=== PATIENT | male | born 1955 | race Caucasian/White ===

== ENCOUNTER 2019-12-16 07:11 | Day surgery (SDC) | payer OTHER, SELFPAY ==
[2019-12-10 16:08] VITALS: BMI 25.1
--- NOTE | 2019-12-15 11:42 | P.CONAN_ITS ---
Documented by User: Ivy Landaverde 12/15/19 11:42 HPI - Anesthesia Eval Consult details Narrative: 64yo M for Colonoscopy PMFSH Past Medical History Medical History (Updated 12/16/19 @ 08:24 by Kaelyn Le) Anxiety disorder Diabetes Eczema Elevated cholesterol History of right foot drop HTN (hypertension) Hx of right bundle branch block Lymphocytosis Seizure disorder Surgical History Surgical History Hx of colonoscopy Social History Social History Smoking Status: Never smoker Use of substances other than those prescribed or required for medical reasons: No Have you been hit, kicked, punched, or otherwise hurt by someone within the past year? If so, by whom?: No Advance Directives: No Advance Directives Information Provided: No Advance Directives on File: No Recently lost weight without trying: No Meds Allergies Allergy/AdvReac Type Severity Reaction Status Date / Time Shellfish Allergy Severe Anaphylaxis Uncoded 12/10/19 16:07 Home Medications Medication Instructions Recorded Confirmed Type dapagliflozin [Farxiga] 1 tab PO DAILY 12/10/19 12/10/19 History glyburide 10 tab PO BID 12/10/19 12/10/19 History hydrochlorothiazide 1 cap PO DAILY 12/10/19 12/10/19 History metformin 1 tab PO BID 12/10/19 12/10/19 History phenytoin sodium extended 1 cap PO 4-5XD 12/10/19 12/10/19 History ramipril cap PO 12/10/19 History rosuvastatin 1 tab PO DAILY 12/10/19 12/10/19 History sertraline 1 tab PO DAILY 12/10/19 12/10/19 History sitagliptin [Januvia] 1 tab PO DAILY 12/10/19 12/10/19 History Exam Exam Date and Time: December 15, 2019 1142 Height,Weight and Vital Signs: Height 5 ft 11 in Weight 81.647 kg Assessment and Plan Assessment Anesthesia Assessment: Chart Reviewed Documented by User: Kaelyn Le 12/16/19 08:26 [facility] Past Medical History Medical History (Updated 12/16/19 @ 08:24 by Kaelyn Le) Anxiety disorder Diabetes Eczema Elevated cholesterol History of right foot drop HTN (hypertension) Hx of right bundle branch block Lymphocytosis Seizure disorder Family History Family history of problems with anesthesia: No Surgical History Surgical History Hx of colonoscopy History of Problems with Anesthesia: No Social History Social History Smoking Status: Never smoker Use of substances other than those prescribed or required for medical reasons: No Have you been hit, kicked, punched, or otherwise hurt by someone within the past year? If so, by whom?: No Advance Directives: No Advance Directives Information Provided: No Advance Directives on File: No Recently lost weight without trying: No Meds Allergies Allergy/AdvReac Type Severity Reaction Status Date / Time Shellfish Allergy Severe Anaphylaxis Uncoded 12/10/19 16:07 Home Medications Medication Instructions Recorded Confirmed Type dapagliflozin [Farxiga] 1 tab PO DAILY 12/10/19 12/10/19 History glyburide 10 tab PO BID 12/10/19 12/10/19 History hydrochlorothiazide 1 cap PO DAILY 12/10/19 12/10/19 History metformin 1 tab PO BID 12/10/19 12/10/19 History phenytoin sodium extended 1 cap PO 4-5XD 12/10/19 12/10/19 History ramipril cap PO 12/10/19 History rosuvastatin 1 tab PO DAILY 12/10/19 12/10/19 History sertraline 1 tab PO DAILY 12/10/19 12/10/19 History sitagliptin [Januvia] 1 tab PO DAILY 12/10/19 12/10/19 History Exam Height,Weight and Vital Signs: Vital Signs Temp Pulse Resp Pulse Ox 12/16/19 08:08 98.0 F 80 16 97 Lab Results 12/16/19 Range/Units 08:19 POC Glucose 104 (60-115) mg/dL Airway Mallampati Class: II TM Dist: >3cm Neck ROM: Full Heart: RRR Lungs: CTAB Assessment and Plan Assessment Anesthesia Assessment: Anesthesia Plan Discussed and Chart Reviewed Final Anesthetic Review NPO: Yes ASA Class: III Final Preanesthetic Review: No Changes in Pt Med Stat, Meds/Allgs Chart Reviewed, Consent Obtained/Reviewed and Anes Risks/Benef Reviewed Patient Risk: Intermediate Procedure Risk: Low Anesthetic Plan Anesthetic Plan: MAC: Disposition: Standard PACU
[2019-12-16 08:08] VITALS: BP 156/86; PULSE 80; RESP 16; TEMP 36.7; O2SAT 97
[2019-12-16] MEDS: Lactated Ringers 1,000 ML 100 ML IVCONT (08:10)
[2019-12-16 08:11] VITALS: BMI 25.1
[2019-12-16 08:22] LABS: Glucose, Whole Blood 104 mg/dL (60-115)
--- NOTE | 2019-12-16 08:31 | P.CONAN_ITS ---
[facility] Past Medical History Medical History (Updated 12/16/19 @ 08:24 by Kaelyn Le) Anxiety disorder Diabetes Eczema Elevated cholesterol History of right foot drop HTN (hypertension) Hx of right bundle branch block Lymphocytosis Seizure disorder Surgical History Surgical History Hx of colonoscopy Social History Social History Smoking Status: Never smoker Use of substances other than those prescribed or required for medical reasons: No Have you been hit, kicked, punched, or otherwise hurt by someone within the past year? If so, by whom?: No Advance Directives: No Advance Directives Information Provided: No Advance Directives on File: No Recently lost weight without trying: No Meds Allergies Allergy/AdvReac Type Severity Reaction Status Date / Time Shellfish Allergy Severe Anaphylaxis Uncoded 12/10/19 16:07 Home Medications Medication Instructions Recorded Confirmed Type dapagliflozin [Farxiga] 1 tab PO DAILY 12/10/19 12/10/19 History glyburide 10 tab PO BID 12/10/19 12/10/19 History hydrochlorothiazide 1 cap PO DAILY 12/10/19 12/10/19 History metformin 1 tab PO BID 12/10/19 12/10/19 History phenytoin sodium extended 1 cap PO 4-5XD 12/10/19 12/16/19 History ramipril cap PO 12/10/19 History rosuvastatin 1 tab PO DAILY 12/10/19 12/10/19 History sertraline 1 tab PO DAILY 12/10/19 12/10/19 History sitagliptin [Januvia] 1 tab PO DAILY 12/10/19 12/10/19 History Exam Exam Date and Time: December 16, 201931 Height,Weight and Vital Signs: Height 5 ft 11 in Weight 81.647 kg Last Vital Signs Temp 98.0 F 12/16/19 08:08 Pulse 80 12/16/19 08:08 Resp 16 12/16/19 08:08 BP 156/86 H 12/16/19 08:08 Pulse Ox 97 12/16/19 08:08 Pertinent Lab Results Pertinent Lab Results: Laboratory Tests 12/16/19 08:19 POC Glucose 104 Assessment and Plan Assessment Anesthesia Assessment: Anesthesia Plan Discussed and Chart Reviewed Final Anesthetic Review NPO: Yes ASA Class: III Final Preanesthetic Review: No Changes in Pt Med Stat, Meds/Allgs Chart Reviewed, Consent Obtained/Reviewed and Anes Risks/Benef Reviewed Patient Risk: Intermediate Anesthetic Plan Anesthetic Plan: MAC: Disposition: Standard PACU
--- NOTE | 2019-12-16 08:31 | MHC.SHP ---
Pre-Procedural Eval Section B Chief Complaint: screening Details of Present Illness: COLONOSCOPY Relevant Family History (Specify if Yes): No Relevant Social History: None Present Medications: see Short Stay Collaborative assessment Medical History: Significant History (SEIZURE DISORDER, HYPERTENSION, DIABETES, RBBB) History of Previous Operations: Relevant previous surgery/procedure and date(s) (2009-INCOMPLETE COLO) Allergies: Allergies Allergy/AdvReac Type Severity Reaction Status Date / Time Shellfish Allergy Severe Anaphylaxis Uncoded 12/10/19 16:07 Review of Systems Sugical H&P ROS: Negative: Constitution, Cardiovascular, Respiratory and Gastrointestinal Review of Systems Comment: NO INTERIM PROBLEMS. Exam Surgical H&P Exam: Normal: HEENT, Normal: Heart, Normal: Lungs, Normal: Extremities, Normal: Abdomen and Normal: Skin Plan Diagnosis/Plan: Unchanged Patient has been examined and remains a candidate for the planned procedure--YES
--- NOTE | 2019-12-16 08:37 | PM.PROC ---
Brief Operative Note Date of procedure: 12/16/19 Pre-op diagnosis: Incomplete colo--2009 Post-op diagnosis: other (Multiple polyps with complex polypectomies of 2) Procedure: Colonoscopy Anesthesia: MAC (BOB Olivas) Surgeon: Tamiko Vincent Estimated blood loss (mL): 10 Pathology: other (Hepatic Flexure, ascending colo ; prox asc colon, 45 cm) Condition: stable Disposition: PACU
[2019-12-16 10:10] VITALS: BP 138/71; PULSE 70; RESP 16; TEMP 36.4; O2SAT 97
[2019-12-16 10:25] VITALS: BP 158/84; PULSE 16; RESP 16; TEMP 36.4; O2SAT 98
--- NOTE | 2019-12-16 11:08 | HO.POSTANES ---
Post Anesthesia Evaluation Post Anesthesia Evaluation Vital Signs: Vital Signs Temp Pulse Resp BP Pulse Ox 12/16/19 10:25 97.5 F 16 L 16 158/84 H 98 12/16/19 10:10 97.5 F 70 16 138/71 97 12/16/19 08:08 98.0 F 80 16 156/86 H 97 Anesthesia: Monitored Mental Status: Awake Pain Control: Satisfactory Nausea/Vomiting: None Hydration: Adequate Anesthesia-Related Issues: No Anes. Related Issues
--- NOTE | 2019-12-19 14:27 | OP_ITS ---
SURGEON: Tamiko Vincent MD PROCEDURE PERFORMED: Colonoscopy with hot snare polypectomy x2, excisional polypectomy x2, 4 total polypectomies, for the procedure submucosal epinephrine injection 2.5 mL, resolution clipping x2 at the level of the hepatic flexure, total resolution clips 3. This was a complex procedure. ESTIMATED BLOOD LOSS: Minimal. COMPLICATIONS: No complications. ANESTHESIA: Monitored. The patient was given an additional dose of 1 mg of glucagon to control spasm during the time span of the polypectomies. ANESTHESIOLOGIST: Stanford Olivas CRNA. ASSISTANTS: No baking assistant. SPECIMENS: Specimens removed; hepatic flexure, resolution clip placed in this area. In this area, had 1.5 mL submucosally of the epinephrine. Ascending colon polyp, proximal ascending colon 45 cm polyp. PREOPERATIVE DIAGNOSES: Colon cancer screening, complete colonoscopy in 2009. The patient has significant medical problems: Seizure disorder, Noninsulin dependent diabetes, Hypertension, H. POSTOPERATIVE DIAGNOSES: Diverticulosis, multiple polyps, villous lesion at the anorectal verge. Referral to Dr. Velasquez for lesion @ the anorectal verge. DIRECTOR MOTION PICTURE: Dr. Vincent. START TIME: 8:41 a.m. END TIME: 10:01 a.m. CONDITION: Postprocedure, stable. FINDINGS: Digital rectal exam revealed enlarged slightly firm prostate consistent with BPH. Video colonoscope was introduced without difficulty. It was navigated into rectosigmoid and sigmoid area. Slow progress through sigmoid, descending colon. Scope was ultimately moved through the transverse colon, ascending colon down into the cecum. Appendiceal orifice was seen. Ileocecal valve was well seen. No mucosal abnormalities were appreciated on the way in. Prep was good. Few areas requiring additional flushing and suctioning. In addition to the polyps on this exam, there was some diverticula noted, primarily on the left side. polyps were removed as described in procedure and specimens. Slow removal on withdrawing the scope. There was an approximately 1 cm hypervascular villous type polyp right at the anorectal verge. This was left in place to be removed under surgical management at a later date. PLAN AND CURRENT RECOMMENDATIONS: Repeat asymptomatic screening in this patient is generally 5 years. Review of histology available at the time of the dictation of this note revealed all polyps to be tubular adenomas. None of them had high-grade dysplasia. 5-year followup as appropriate. Followup or televisit to discuss area at the anorectal verge that will need to be addressed due to its hypervascularity and location in the hemorrhoidal bed. GRAFT OR IMPLANTS: Resolution clipping x2 Tamiko Vincent MD MEN/MODL / [id number] MTDD
== END 2019-12-16 11:40 | disposition home or self-care (01) ==
PROVIDERS: PCP Internal Medicine; Visit Provider Internal Medicine Gastroenterology
PROC: 0DJD8ZZ Inspection of Lower Intestinal Tract, Via Natural or Artificial Opening Endoscopic (ICD-10-PCS; CPT 45378; principal; 2019-12-16 08:20)
DX: Z12.11 Encounter for screening for malignant neoplasm of colon (principal); D12.2 Benign neoplasm of ascending colon; D12.3 Benign neoplasm of transverse colon; D12.5 Benign neoplasm of sigmoid colon; K57.30 Diverticulosis of large intestine without perforation or abscess without bleeding; E11.9 Type 2 diabetes mellitus without complications; I10 Essential (primary) hypertension; G40.909 Epilepsy, unspecified, not intractable, without status epilepticus; Z79.84 Long term (current) use of oral hypoglycemic drugs; Z79.899 Other long term (current) drug therapy
CPT/HCPCS: 45385; 45380; 45381; 82947; 88305; J0171; J1610

== ENCOUNTER → 2020-01-06 10:28 | Outpatient (BNVA) | payer OTHER, SELFPAY | PROVIDERS: PCP Internal Medicine; Referring Provider Internal Medicine; Visit Provider Nurse Practitioner | DX: Z76.89 Persons encountering health services in other specified circumstances (principal) ==

== ENCOUNTER 2020-02-28 07:01 | Outpatient (REF) | payer OTHER, SELFPAY ==
[2020-02-28 07:49] LABS: Estimated Average Glucose 214 mg/dL; Hemoglobin A1c % 9.1 %
[2020-02-28 07:53] LABS: Glucose Fasting 203 mg/dL (60-99)
== END 2020-02-28 07:02 | disposition home or self-care (01) ==
LOC: HO.LAB 07:01
PROVIDERS: PCP Internal Medicine; Visit Provider Internal Medicine
DX: E11.9 Type 2 diabetes mellitus without complications (principal)
CPT/HCPCS: 36415; 82947; 83036

== ENCOUNTER 2020-06-15 11:09 | Outpatient (REF) | payer OTHER, SELFPAY ==
[2020-06-15 11:40] LABS: MANUAL DIFF FLAG NO
[2020-06-15 12:14] LABS: Basophils Percent Auto 0.5 % (0-2); Eosinophils Absolute Auto 0.2 X10*3/uL (0.0-0.4); Eosinophils Percent Auto 4.3 % (0-4); Hematocrit 38.6 % (42-52); Hemoglobin 12.8 g/dl (14.0-18.0); Lymphocytes Absolute Auto 1.5 X10*3/uL (1.2-4.9); Lymphocytes Percent Auto 35.4 % (20-40); Mean Corpuscular HGB Conc 33.2 g/dl (31.0-36.0); Mean Corpuscular Hemoglobin 29.7 pg (27.0-33.0); Mean Corpuscular Volume 89.6 fL (80-98); Mean Platelet Volume 9.3 fL (9.4-12.4); Monocytes Absolute Auto 0.4 X10*3/uL (0.1-1.2); Monocytes Percent Auto 10.5 % (2-11); Neutrophils Absolute Auto 2.1 X10*3/uL (2.0-8.3); Neutrophils Percent Auto 49.3 % (45-73); Platelet Count 251 X10*3/uL (160-400); Red Blood Count 4.31 X10*6/uL (4.60-5.80); Red Cell Distribution Width 12.4 % (11.0-16.0); White Blood Count 4.2 X10*3/uL (4.8-10.8)
[2020-06-15 12:24] LABS: Estimated Average Glucose 209 mg/dL; Hemoglobin A1c % 8.9 %
[2020-06-15 12:28] LABS: Glucose Urine UA >=1000 MG/DL (NEG); Leukocyte Esterase Urine NEG (NEG); Nitrite Urine NEG (NEG); PH 6.5 (5.0-8.0); Urine Blood NEG (NEG); Urine Ketones NEG (NEG); Urine Protein TRACE MG/DL (NEG-TRACE)
[2020-06-15 12:30] LABS: Appearance Urine CLEAR; Color Urine YELLOW
[2020-06-15 12:49] LABS: Alanine Aminotransferase 32 U/L (0-40); Albumin Level 4.3 g/dL (3.5-5.0); Alkaline Phosphatase 74 U/L (39-117); Anion Gap 14 (12-20); Aspartate Amino Transferase 29 U/L (5-37); Bilirubin Total 0.4 mg/dL (0.0-1.0); Blood Urea Nitrogen 18 mg/dL (9-16); Calcium 8.9 mg/dL (8.4-10.2); Carbon Dioxide 27 mmol/L (22-29); Chloride 102 mmol/L (96-108); Cholesterol 143 mg/dL; Estimated Glomerular Filt Rate > 60; Glucose Fasting 193 mg/dL (60-99); HDL Cholesterol 64 mg/dL; LDL Cholesterol Calculated 69 mg/dl; Potassium 4.2 mmol/L (3.3-5.1); Sodium 139 mmol/L (135-145); Total Protein 6.8 g/dL (6.5-8.0); Triglycerides 50 mg/dL
[2020-06-15 12:54] LABS: RBC Urine 0-2 /HPF (0); Squamous Epithelial Cell Urine TRACE /LPF; WBC Urine 0 /HPF (0-4)
[2020-06-15 12:59] LABS: Reflex LDLD? No
[2020-06-15 13:02] LABS: Microalbum/Creatinine Ratio Ur 149.5 ug/mg cr
[2020-06-15 13:11] LABS: PSA,Total (Free>4and<10) 1.41 ng/mL (0.00-4.00)
== END 2020-06-15 11:10 | disposition home or self-care (01) ==
LOC: HO.LNP 11:09
PROVIDERS: PCP Internal Medicine; Visit Provider Internal Medicine
DX: Z00.00 Encounter for general adult medical examination without abnormal findings (principal); E11.9 Type 2 diabetes mellitus without complications; I10 Essential (primary) hypertension; E78.00 Pure hypercholesterolemia, unspecified; R79.9 Abnormal finding of blood chemistry, unspecified
CPT/HCPCS: 80053; 80061; 81001; 81003; 82043; 83036; 84153; 85025

== ENCOUNTER 2022-07-10 15:53 | Outpatient (REF) | payer OTHER, SELFPAY ==
[2022-07-10 16:01] LABS: Appearance Urine Clear; Color Urine Yellow; Glucose Urine UA >=1000 mg/dL (Negative); Leukocyte Esterase Urine Negative (Negative); Nitrite Urine Negative (Negative); PH 5.5 (5.0-9.0); Specific Gravity - Urine >= 1.030 (1.005-1.025); UMIC TRIGGER UA YES; Urine Blood Negative (Negative); Urine Ketones 15 mg/dL (Negative); Urine Protein 30 (1+) mg/dL (Neg-Trace)
[2022-07-10 16:04] LABS: Bacteria Urine None Seen (None Seen); Hyaline Casts Urine 0-2 /LPF (0-2); RBC Urine 0-2 /HPF (0-2); Squamous Epithelial Cell Urine 0-2 /HPF (0-2); WBC Urine 0-5 /HPF (0-5)
== END 2022-07-10 15:54 | disposition home or self-care (01) ==
LOC: HO.LNP 15:53
PROVIDERS: Visit Provider Internal Medicine
DX: R35.89 Other polyuria (principal)
CPT/HCPCS: 81001; 87086

== ENCOUNTER 2022-08-17 11:15 | Outpatient (REF) | payer OTHER, SELFPAY ==
[2022-08-17 11:24] LABS: MANUAL DIFF FLAG NO
[2022-08-17 12:35] LABS: Basophils Percent Auto 0.5 % (0-2); Eosinophils Absolute Auto 0.3 X10*3/uL (0.0-0.4); Eosinophils Percent Auto 5.9 % (0-4); Hematocrit 40.6 % (42.0-52.0); Hemoglobin 13.4 g/dl (14.0-18.0); Lymphocytes Absolute Auto 1.8 X10*3/uL (1.2-4.9); Lymphocytes Percent Auto 43.5 % (20-40); Mean Corpuscular Volume 90.8 fL (80.0-98.0); Mean Platelet Volume 9.9 fL (9.4-12.4); Monocytes Absolute Auto 0.4 X10*3/uL (0.1-1.2); Monocytes Percent Auto 10.5 % (2-11); Neutrophils Absolute Auto 1.7 x10*3/uL (2.0-8.3); Neutrophils Percent Auto 39.6 % (45-73); Platelet Count 248 X10*3/uL (160-400); Red Blood Count 4.47 X10*6/uL (4.60-5.80); Red Cell Distribution Width 13.8 % (11.0-16.0); White Blood Count 4.2 X10*3/uL (4.8-10.8)
[2022-08-17 12:42] LABS: Phenytoin Dilantin 10.1 ug/mL (10.0-20.0)
[2022-08-17 12:43] LABS: Alanine Aminotransferase 27 U/L (0-40); Albumin Level 4.5 g/dL (3.5-5.0); Alkaline Phosphatase 70 U/L (39-117); Anion Gap 15 (12-20); Aspartate Amino Transferase 17 U/L (5-37); Bilirubin Total 0.5 mg/dL (0.0-1.0); Blood Urea Nitrogen 23 mg/dL (9-16); Calcium 9.5 mg/dL (8.4-10.2); Carbon Dioxide 25 mmol/L (22-29); Chloride 105 mmol/L (96-108); Cholesterol 175 mg/dL; Estimated Glomerular Filt Rate > 60; Glucose Fasting 179 mg/dL (60-99); HDL Cholesterol 56 mg/dL; LDL Cholesterol Calculated 99 mg/dl; Potassium 3.8 mmol/L (3.3-5.1); Sodium 141 mmol/L (135-145); Total Protein 7.2 g/dL (6.5-8.0); Triglycerides 101 mg/dL
[2022-08-17 12:48] LABS: Estimated Average Glucose 197 mg/dL; Hemoglobin A1c % 8.5 %
[2022-08-17 13:02] LABS: PSA,Total (Free>4and<10) 1.46 ng/mL (0.00-4.00)
== END 2022-08-17 11:16 | disposition home or self-care (01) ==
LOC: HO.LNP 11:15
PROVIDERS: Visit Provider Internal Medicine
DX: Z12.5 Encounter for screening for malignant neoplasm of prostate (principal); G40.909 Epilepsy, unspecified, not intractable, without status epilepticus; E11.9 Type 2 diabetes mellitus without complications; E78.00 Pure hypercholesterolemia, unspecified; I10 Essential (primary) hypertension; R79.9 Abnormal finding of blood chemistry, unspecified; Z79.899 Other long term (current) drug therapy
CPT/HCPCS: 80053; 80061; 80185; 83036; 84153; 85025

== ENCOUNTER 2022-08-24 16:55 | Outpatient (REF) | payer OTHER, SELFPAY | END 2022-08-24 16:56 | disposition home or self-care (01) | LOC: HO.LNP 16:55 | PROVIDERS: PCP Internal Medicine; Visit Provider Internal Medicine | DX: E11.9 Type 2 diabetes mellitus without complications (principal); I10 Essential (primary) hypertension | CPT/HCPCS: 81001; 82043 ==

== ENCOUNTER 2022-10-19 12:37 | Outpatient (REF) | payer MEDICARE, SELFPAY ==
[2022-10-19 12:43] LABS: MANUAL DIFF FLAG NO
[2022-10-19 12:47] LABS: Basophils Percent Auto 0.6 % (0-2); Eosinophils Absolute Auto 0.2 X10*3/uL (0.0-0.4); Eosinophils Percent Auto 4.1 % (0-4); Hematocrit 42.2 % (42.0-52.0); Hemoglobin 14.1 g/dl (14.0-18.0); Lymphocytes Absolute Auto 2.1 X10*3/uL (1.2-4.9); Lymphocytes Percent Auto 45.1 % (20-40); Mean Corpuscular HGB Conc 33.4 g/dl (31.0-36.0); Mean Corpuscular Hemoglobin 29.3 pg (27.0-33.0); Mean Corpuscular Volume 87.6 fL (80.0-98.0); Mean Platelet Volume 9.9 fL (9.4-12.4); Monocytes Absolute Auto 0.6 X10*3/uL (0.1-1.2); Monocytes Percent Auto 13.7 % (2-11); Neutrophils Absolute Auto 1.7 x10*3/uL (2.0-8.3); Neutrophils Percent Auto 36.5 % (45-73); Platelet Count 222 X10*3/uL (160-400); Red Blood Count 4.82 X10*6/uL (4.60-5.80); Red Cell Distribution Width 12.7 % (11.0-16.0); White Blood Count 4.7 X10*3/uL (4.8-10.8)
== END 2022-10-19 12:38 | disposition home or self-care (01) ==
LOC: HO.LNP 12:37
PROVIDERS: Visit Provider Internal Medicine
DX: D72.820 Lymphocytosis (symptomatic) (principal)
CPT/HCPCS: 85025

== ENCOUNTER 2023-10-15 10:40 | Outpatient (REF) | payer MEDICARE, SELFPAY ==
[2023-10-15 11:34] LABS: Blood Urea Nitrogen 19 mg/dL (9-16); Estimated Glomerular Filt Rate 59
== END 2023-10-15 10:41 | disposition home or self-care (01) ==
LOC: HO.LNP 10:40
PROVIDERS: Visit Provider Internal Medicine
DX: R79.9 Abnormal finding of blood chemistry, unspecified (principal)
CPT/HCPCS: 82565; 84520

== ENCOUNTER 2024-05-12 13:13 | Outpatient (REF) | payer MEDICARE, SELFPAY ==
[2024-05-12 13:16] LABS: MANUAL DIFF FLAG NO
[2024-05-12 13:24] LABS: Basophils Percent Auto 0.5 % (0-2); Eosinophils Absolute Auto 0.1 X10*3/uL (0.0-0.4); Eosinophils Percent Auto 1.6 % (0-4); Hematocrit 35.4 % (42.0-52.0); Hemoglobin 12.1 g/dl (14.0-18.0); Imm Gran Abs Auto 0.01 X10*3/uL (0.00-0.03); Imm Gran Pct Auto 0.2 % (0.0-0.4); Lymphocytes Absolute Auto 1.2 X10*3/uL (1.2-4.9); Lymphocytes Percent Auto 27.7 % (20-40); Mean Corpuscular HGB Conc 34.2 g/dl (31.0-36.0); Mean Corpuscular Volume 87.6 fL (80.0-98.0); Mean Platelet Volume 9.1 fL (9.4-12.4); Monocytes Absolute Auto 0.4 X10*3/uL (0.1-1.2); Monocytes Percent Auto 9.6 % (2-11); Neutrophils Absolute Auto 2.6 x10*3/uL (2.0-8.3); Neutrophils Percent Auto 60.4 % (45-73); Platelet Count 295 X10*3/uL (160-400); Red Blood Count 4.04 X10*6/uL (4.60-5.80); Red Cell Distribution Width 12.9 % (11.0-16.0); White Blood Count 4.3 X10*3/uL (4.8-10.8)
[2024-05-12 13:35] LABS: Alanine Aminotransferase 42 U/L (0-40); Albumin Level 4.1 g/dL (3.5-5.0); Alkaline Phosphatase 131 U/L (39-117); Anion Gap 9 (12-20); Aspartate Amino Transferase 26 U/L (5-37); Bilirubin Total 0.2 mg/dL (0.0-1.0); Blood Urea Nitrogen 29 mg/dL (9-16); Calcium 8.7 mg/dL (8.4-10.2); Carbon Dioxide 26 mmol/L (22-29); Chloride 109 mmol/L (96-108); Estimated Glomerular Filt Rate > 60; Glucose Random 228 mg/dL (60-115); Potassium 4.2 mmol/L (3.3-5.1); Sodium 140 mmol/L (135-145)
[2024-05-12 14:06] LABS: Phenytoin Dilantin 12.4 ug/mL (10.0-20.0)
== END 2024-05-12 13:14 | disposition home or self-care (01) ==
LOC: HO.LNP 13:13
PROVIDERS: Visit Provider Internal Medicine
DX: R26.9 Unspecified abnormalities of gait and mobility (principal); F68.8 Other specified disorders of adult personality and behavior
CPT/HCPCS: 80053; 80185; 85025

== ENCOUNTER 2025-01-27 09:52 | Outpatient (AMB) | payer MEDICARE, OTHER, SELFPAY ==
--- NOTE | 2025-01-27 10:27 | A.OFFVIS_ITS ---
Intake Visit Reasons: follow up Allergies Shellfish Allergy (Severe, Uncoded 12/10/19 16:07) Anaphylaxis Medication List - Last Reconciled 01/27/25 by Franco Taylor MD dapagliflozin propanediol (Farxiga) 1 tab PO DAILY glyburide 5 mg PO BID hydrochlorothiazide 1 cap PO DAILY insulin glargine (Lantus Solostar U-100 Insulin) 20 units subcut DAILY metformin 1,000 mg PO DAILY phenytoin sodium extended 100 mg orally; 1 tab in am and 2 tabs at HS rosuvastatin 1 tab PO DAILY sitagliptin phosphate (Januvia) 1 tab PO DAILY HPI Comments Details: He is doing much better with his balance and now gets around well with a wheeled walker. Only one fall by tripping. No injuries. Had PT. Family have noticed in the last 3 years that he's had some short-term memory problems.? Over the last 2 years he's had slowly progressive gait and balance problems with at least 5 falls, the last one was about 3 weeks ago.? Currently he is in a wheelchair and can walk with a walker with one assist.? He has a long history of epilepsy has been seizure free for more than 24 years and was taking Dilantin 500 mg a day which was reduced to 400mg a day in June. No levels are available.? He also has a 40 year history of diabetes and has been poorly compliant with his medications.? He has no bladder control problems.? A recent MRI of the brain and was reviewed and shows a moderate hydrocephalus as well has scored diffuse shelton ical and cerebellar atrophy. [facility] Medical History (Updated 01/27/25 @ 10:31 by Franco Taylor MD) HLD (hyperlipidemia) Epilepsy Cerebellar ataxia Hydrocephalus Lymphocytosis Anxiety disorder History of right foot drop Eczema Seizure disorder Diabetes Hx of right bundle branch block Elevated cholesterol HTN (hypertension) Surgical History (Updated 01/06/20 @ 10:33 by CARMEL Rosales) Hx of colonoscopy Family History (Updated 01/06/20 @ 10:31 by CARMEL Rosales) Father Cancer of kidney Mother Diabetes Emphysema lung Social History (Updated 08/25/24 @ 16:31 by Zoie Call MA) Alcohol intake: never Patient Tobacco Use Status: Never used Tobacco Review of Systems Const Details: ?Sleep:? Difficulty getting to sleepdenies.? Difficulty maintaining sleepdenies?.? Urge to move legsdenies.? Teeth grindingdenies.? Shouting or Kicking during sleep denies.? Abnormal behavior during sleepdenies.? Excessive sleepdenies.? Snoring denies.? Daytime sleepinessdenies. ???General/Constitutional:? Change in appetitedenies.? Chillsdenies.? Fatiguedenies.? Feverdenies.? Weight gaindenies.? Weight lossdenies. ???Ophthalmologic:? Blurred visiondenies.? Diminished visual acuitydenies. ???ENT:? Stuffinessdenies.? Decreased hearingdenies.? Dry mouthdenies.? Ear paindenies.? Nosebleeddenies.? Ringing in the earsdenies.? Sinus paindenies.? Sore throat denies.? Swollen glandsdenies. ???Endocrine:? Cold intolerancedenies.? Excessive thirstdenies.? Frequent urinationdenies.? Heat intolerancedenies. ???Respiratory:? Shortness of breathdenies.? Chest paindenies.? Coughdenies. ???Breast:? Breast lumpdenies.? Nipple dischargedenies. ???Cardiovascular:? Chest pain at restdenies.? Chest pain with exertiondenies.? Claudicationdenies .? Dizzinessdenies.? Fluid accumulation in the legsdenies.? Irregular heartbeat denies.? Palpitationsdenies. ???Gastrointestinal:? Abdominal paindenies.? Constipationdenies.? Diarrheadenies.? Difficulty swallowingdenies.? Heartburndenies.? Nauseadenies.? Rectal bleedingdenies. ???Hematology:? Easy bruisingdenies.? Prolonged bleedingdenies. ???Genitourinary:? Frequent urinationdenies.? Urgencydenies.? Incontinencedenies.? Erectile Dysfunctiondenies. ???Musculoskeletal:? Neck paindenies.? Back paindenies.? Muscle achesdenies.? Painful jointsdenies.? Sciaticadenies.? Weaknessdenies. ???Podiatric:? Difficulty walkingdenies.? Foot numbnessdenies. ???Neurologic:? Difficulty swallowingdenies.? Balance difficultyadmits.? Coordinationnormal.? Difficulty speakingdenies.? Dizzinessdenies.? Faintingdenies.? Gait abnormality admits.? Headachedenies.? Loss of strengthdenies.? Loss of use of extremity denies.? Low back paindenies.? Memory lossadmits.? Seizuresadmits.? Ticsdenies.? Tingling/Numbnessdenies.? Transient loss of visiondenies.? Tremordenies. ???Psychiatric:? Anxietydenies.? Auditory/visual hallucinationsdenies.? Delusionsdenies.? Depressed mooddenies.? Stressorsdenies.? Substance abusedenies.? Suicidal thoughtsdenies. Physical Exam Neuro Other: Neurological: Abnormal neurological findings:??he is in a wheelchair and unable to walk without two assists.?Mental Status:??alert and oriented X 3,?Normal attention, orientation, memory and affect.?Cranial Nerves:??Pupils are equal, round and reactive to light. Fundoscopy shows normal disc bilaterally. External occular muscles are intact. Visual lópez are full, no ptosis. Face is symmetrical, no facial weakness or droop. Facial sensations are normal. Tongue protrudes in midline. Palate elevates symmetrically. Shoulder shrugging is normal..?Motor Examination:??Normal muscle tone, bulk and strength,?No atrophy or fasciculations,?No drift of the extended upper extremities,?Deep tendon reflexes are 0+?,?Plantars are flexor?.?Motor Strength:?Proximal Muscles (out of 5):5 Distal Muscles (out of 5):5Neck Flexors (out of 5):5Neck Extensors (out of 5):5 Deltoid (out of 5):5Biceps (out of 5):5Triceps (out of 5):5Serratus Anterior (out of 5):5Wrist Extensors (out of 5):5APB (out of 5):5Finger Spread (out of 5):5Ileopsoas (out of 5):5Quadriceps (out of 5):5Hamstrings (out of 5):5Tibialis Anterior (out of 5):5Peronei (out of 5):5EDB (out of 5):5Gastrocnemius (out of 5):5Straight Leg Raising:??90 degrees.?Sensory Exam:??Normal light touch, temperature, pinprick, vibration and joint-position sensations?,?Rhomberg sign is absent.?Coordination:??no ataxia,?no titubation,?[id number]-wf-znhi, udbp-jlmw-[id number] test and rapid alternating movements were normal.?Gait Exam:??un able to walk.?Cerebellar Signs:??Zyloqt-ft-[id number] and syeo-se-obkn is normal,?no dysdiadochokinesia?.?Extrapyramidal System:??No tremor, rigidity with normal facial expressions,?No bradykinesia, no bradyphrenia.?.?Speech:??Normal,?no dysphasia or dysarthria..? Mini Mental Status Exam: Level of Consciousness:??Alert.?Orientation:??Knows correct year, month, date, day and season,?Knows correct city, county and state. Knows correct location and floor.?Registration:??Able to register 3 objects.?Attention:??Serial 7's performed accurately.?Recall:??Able to recall 3 out of 3 objects.?Language:??Normal spontaneous speech, fluency, repetition,naming, comprehension, reading and writing.?Total Score:??30/30.? General Examination: GENERAL APPEARANCE:??normal,?in no acute distress.?HEAD:??normocephalic,?atraumatic.?EYES:??sclera non- icteric,?conjunctiva clear.?EARS:??auditory canal clear,?tympanic membrane intact, clear.?NOSE:??no lesions.?ORAL CAVITY:??gums normal,?mucosa moist,?no lesions.?THROAT:??clear.?NECK/THYROID:??no cervical lymphadenopathy,?thyroid normal,?neck supple, full range of motion,?no carotid bruit.?SKIN:??no ra shes,?no significant birthmarks.? 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 Will continue to taper off over 6 months Medications: New phenytoin sodium extended 100 mg orally; 1 tab in am and 2 tabs at HS 90 caps 5RF Coding Level of Care Code Est Pt Level 4 (74976) Diagnoses Seizure disorder G40.909 Hydrocephalus G91.9 Cerebellar ataxia G11.9 Diabetes E11.9
== END 2025-01-27 10:41 | disposition home or self-care (01) ==
LOC: HO.HSM 09:52
PROVIDERS: PCP Internal Medicine; Visit Provider Psychiatry & Neurology Neurology
DX: G40.909 Epilepsy, unspecified, not intractable, without status epilepticus (principal); G91.9 Hydrocephalus, unspecified; G11.9 Hereditary ataxia, unspecified; E11.9 Type 2 diabetes mellitus without complications
CPT/HCPCS: 99214

== ENCOUNTER → 2025-01-27 09:52 | Outpatient (BNVA) | payer MEDICARE, OTHER, SELFPAY | PROVIDERS: PCP Internal Medicine; Visit Provider Psychiatry & Neurology Neurology | DX: G40.909 Epilepsy, unspecified, not intractable, without status epilepticus (principal); G91.9 Hydrocephalus, unspecified; G11.9 Hereditary ataxia, unspecified; E11.9 Type 2 diabetes mellitus without complications | CPT/HCPCS: 99212 ==